=== PATIENT | female | born 1970 | race Caucasian/White ===

== ENCOUNTER 2017-08-06 15:45 | Emergency (ER) | payer BC ==
[2017-08-06 16:14] VITALS: BP 139/87
--- NOTE | 2017-08-06 16:26 | ED ---
Upper Extremity Pain - HPI Summary HPI Summary: 47 year old female presents with complains of bilateral arm/shoulder pain for 6 months with no trauma - History of Current Complaint Chief Complaint: UCUpperExtremity Stated Complaint: BI-LATERAL ARM PAIN Time Seen by Provider: 08/06/17 16:16 Hx Obtained From: Patient Hx Last Menstrual Period: 07/16/17 Mechanism Of Injury: Unknown Onset/Duration: Started Weeks Ago, Atraumatic Timing: Constant Severity Initially: Moderate Severity Currently: Moderate Pain Location: Shoulder, Arm - Allergies/Home Medications Allergies/Adverse Reactions: Allergies Allergy/AdvReac Type Severity Reaction Status Date / Time No Known Allergies Allergy Verified 08/06/17 16:03 Home Medications: Home Medications [id number] [Excedrin Migraine 250-250-65 mg] 1 tab PO DAILY PRN 08/06/17 [History Confirmed 08/06/17] Ibuprofen [Ibuprofen 200] 800 mg PO BID PRN 08/06/17 [History Confirmed 08/06/17 ] PMH/Surg Hx/FS Hx/Imm Hx Previously Healthy: Yes Endocrine/Hematology History: Denies: Hx Diabetes, Hx Thyroid Disease Cardiovascular History: Denies: Hx Hypertension Respiratory History: Denies: Hx Asthma, Hx Chronic Obstructive Pulmonary Disease (COPD) GI History: Denies: Hx Ulcer - Cancer History Hx Chemotherapy: No Hx Radiation Therapy: No Infectious Disease History: No Infectious Disease History: Denies: Hx Hepatitis, Hx Human Immunodeficiency Virus (HIV), Traveled Outside the [place] in Last 30 Days - Social History Alcohol Use: None Substance Use Type: Reports: None Smoking Status (MU): Current Every Day Smoker Type: Cigarettes Amount Used/How Often: 4-5 cigarettes per day Review of Systems Constitutional: Negative Eyes: Negative ENT: Negative Cardiovascular: Negative Respiratory: Negative Gastrointestinal: Negative Genitourinary: Negative Positive: Other - bilateral arm/shoulder pain Skin: Negative Neurological: Negative All Other Systems Reviewed And Are Negative: Yes Physical Exam Triage Information Reviewed: Yes Vital Signs On Initial Exam: Initial Vitals Temp Pulse Resp BP Pulse Ox 37.4 C 109 16 139/87 99 08/06/17 16:05 08/06/17 16:05 08/06/17 16:05 08/06/17 16:05 08/06/17 16:05 Appearance: Positive: Well-Appearing Skin: Positive: Warm Eyes: Positive: Normal ENT: Positive: Normal ENT inspection Neck: Positive: Supple Respiratory/Lung Sounds: Positive: Clear to Auscultation Cardiovascular: Positive: Normal, S4 Bowel Sounds: Positive: Present Musculoskeletal: Positive: Other - bilateral shoulder pain Diagnostics - Vital Signs Vital Signs Temp Pulse Resp BP Pulse Ox 08/06/17 16:05 37.4 C 109 16 139/87 99 - Laboratory Lab Statement: Any lab studies that have been ordered have been reviewed, and results considered in the medical decision making process. Course/Dx - Diagnoses Provider Diagnoses: Biceps tendinitis of both shoulders Discharge - Discharge Plan Condition: Stable Disposition: HOME Prescriptions: Methocarbamol TAB* [Robaxin 500 MG TAB*] 500 mg PO TID PRN #30 tab PRN Reason: Spasms Methylprednisolone [Medrol Dosepak 4 MG*] 4 mg PO .SEE [employer]RI[employer] INSTRUCTION #21 tab Patient Education Materials: Tendinitis (ED), Arm Pain (ED) Forms: *Work Release Referrals: [facility] [place] [Medical Doctor] - Anabelle Rich MD [Primary Care Provider] - Larry Juares MD [Medical Doctor] -
== END 2017-08-06 16:48 | disposition home or self-care (01) ==
LOC: UCEAST 15:45
DX: M75.22 Bicipital tendinitis, left shoulder (principal); M75.21 Bicipital tendinitis, right shoulder; Z72.0 Tobacco use
CPT/HCPCS: 99212; G0463